=== PATIENT | female | born 2000 | race Two or more races ===

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

== ENCOUNTER 2021-08-03 04:06 | Emergency (ER) | payer MEDICAID ==
[~2021-08-03] VITALS: Ht 154.9 cm; Wt 61.2 kg
[2021-08-03 07:07] VITALS: BP 130/77
[2021-08-03] MEDS ORDERED: ACET-1158 PO ×2 (07:23→07:27)
[2021-08-03] MEDS ORDERED: PROM1SOL4 PO ×2 (07:23→07:27)
[2021-08-03] MEDS ORDERED: AZIT500T66 PO ×2 (07:23→07:27)
== END 2021-08-03 07:37 | disposition home or self-care (01) ==
LOC: ER 04:06
DX: U07.1 COVID-19 (principal); M79.10 Myalgia, unspecified site
CPT/HCPCS: 36415; 71045; 87426; 87804

== ENCOUNTER 2021-12-02 23:10 | Emergency (ER) | payer MEDICAID ==
[~2021-12-02] VITALS: Ht 154.9 cm; Wt 63.5 kg
[~2021-12-02 23:10] MED LIST: ACET-1158 PO; AZIT500T66 PO; PROM1SOL4 PO
[2021-12-02 23:51] LABS: Basophils # (auto) 0 10 ^3/uL (0-0.2); Basophils % (auto) 0.5 % (0.0-2.0); Eosinophils # (auto) 0.2 10 ^3/uL (0-0.8); Eosinophils % (auto) 2.3 % (0.0-7.0); Hematocrit 39.9 % (36.0-46.0); Lymphocytes # (auto) 1.4 10 ^3/uL (0.4-5.4); Lymphocytes % (auto) 18.5 % (10.0-50.0); Mean Corpuscular Hemoglobin 32.1 pg (28.0-32.0); Mean Corpuscular Volume 91.6 fL (80.0-100.0); Monocytes % (auto) 13.6 % (0.0-12.0); Neutrophils # (auto) 4.8 10 ^3/uL (1.6-8.6); Neutrophils % (auto) 65.1 % (37.0-80.0); Nucleated Red Blood Cells % 0.2 %; Red Blood Cells 4.35 10^6/uL (4.0-5.20); Red Cell Distribution Width 12.9 % (11.8-14.3); White Blood Cell 7.3 10^3/uL (4.4-10.8)
[2021-12-03 00:09] LABS: Albumin 3.6 g/dL (3.4-5.0); Calcium 8.6 mg/dL (8.5-10.1); Potassium 3.8 mmol/L (3.5-5.1)
[2021-12-03 00:12] LABS: Bilirubin, Total 0.4 mg/dL (0.2-1.0); Total Protein 7.9 g/dL (6.4-8.2)
[2021-12-03 01:09] LABS: Urine Bacteria FEW /hpf (None Seen); Urine Blood Negative /uL (Negative); Urine Mucus FEW (None Seen); Urine Specific Gravity 1.031 (1.001-1.035); Urine WBC 10 /hpf (0 - 5)
[2021-12-03 03:00] VITALS: BP 110/64
[2021-12-03] MEDS ORDERED: ONDA-144 PO (03:15)
== END 2021-12-03 03:34 | disposition home or self-care (01) ==
LOC: ER 23:18
DX: R11.2 Nausea with vomiting, unspecified (principal); Z32.02 Encounter for pregnancy test, result negative
CPT/HCPCS: 36415; 80053; 81001; 81025; 85025; 87070; 87880

== ENCOUNTER 2025-01-03 20:55 | Emergency (ER) | payer MEDICAID ==
[~2025-01-03] VITALS: Ht 154.9 cm; Wt 62.7 kg
[~2025-01-03 20:55] MED LIST changes: -ACET-1158 PO; +ONDA-144 PO; +[UNRECOGNIZED DRUG - CODE] PO
--- NOTE | 2025-01-03 21:43 | ED.PDOC ---
History of Present Illness HPI Comments 24-year-old female presents to the ED with a c/o abdominal pain and rectal bleeding. Patient states that she recently became sexually active again with last consensual intercourse being yesterday. Patient states that intercourse was painful and she is now experiencing rectal bleeding. Patient is also reporting some mild dizziness with ambulation. No other symptoms or modifying factors present at this time. Time Seen by MD: 21:40 Primary Care Provider: UNK Reviewed Notes: Medications, Allergies Allergies: Coded Allergies: NO KNOWN ALLERGIES (Unverified , 02/13/10) Home Meds Active Scripts Ondansetron (Zofran) 4 Mg Tab, 4 MG PO TID PRN for 10 Days, #15 TAB Prov:CONCETTA ORTIZ MD 12/03/21 Acetaminophen (Apap) 500 Mg Tab, 500 MG PO TID for 8 Days, #24 TAB Prov:TRACE HARPER 08/03/21 Promethazine-Dm (Promethazine Dm 6.25-15 mg/5Ml) 1 Oscar Oscar, 1 OSCAR PO TID for 7 Days, #150 ML Prov:TRACE HARPER 08/03/21 Azithromycin (Azithromycin) 500 Mg Tab, 500 MG PO DAILY for 5 Days, #5 TAB Prov:TRACE HARPER 08/03/21 Information Source: Patient Mode of Arrival: Ambulatory Severity: Moderate Timing: Hours Duration: Since onset Prehospital treatment: None Past Medical History PAST MEDICAL HISTORY: Denies Surgical History: Denies all surgeries 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 OFFICE ATTENDANT Hx Family History Family History: Reviewed,noncontributory to illness Social History Smoker: Non-Smoker Alcohol: Denies ETOH Use Drugs: Denies Drug Use Lives In: Home Constitutional: denies: chills, diaphoresis, fatigue, fever, malaise, sweats, weakness, others EENTM: denies: blurred vision, double vision, ear bleeding, ear discharge, ear drainage, ear pain, ear ringing, eye pain, eye redness, hearing loss, mouth pain, mouth swelling, nasal discharge, nose bleeding, nose congestion, nose pain, photophobia, tearing, throat pain, throat swelling, voice changes, others Respiratory: denies: cough, hemoptysis, orthopnea, SOB at rest, shortness of breath, SOB with excertion, stridor, wheezing, others Cardiovascular: denies: chest pain, dizzy spells, diaphoresis, Dyspnea on exertion, edema, irregular heart beat, left arm pain, lightheadedness, palpitations, PND, syncope, others Gastrointestinal: reports: abdominal pain, rectal bleeding; denies: abdomen distended, blood streaked bowels, constipated, diarrhea, dysphagia, difficulty swallowing, hematemesis, melena, nausea, poor appetite, poor fluid intake, rectal pain, vomiting, others Genitourinary: denies: abnormal vagina bleeding, burning, dyspareunia, dysuria, flank pain, frequency, hematuria, incontinence, pain, , vagina discharge, urgency, others Neurological: denies: dizziness, fainting, headache, left sided numbness, left sided weakness, numbness, paresthesia, pre-existing deficit, right sided numbness, right sided weakness, seizure, speech problems, tingling, tremors, weakness, others Musculoskeletal: denies: back pain, gout, joint pain, joint swelling, muscle pain, muscle stiffness, neck pain, others Integumetry: denies: bruises, change in color, change in hair/nails, dryness, laceration, lesions, lumps, rash, wounds, others Allergic/Immunocompromised: denies: Difficulty Healing, Frequent Infections, Hives, Itching, others Hematologic/Lymphatic: denies: anemia, blood clots, easy bleeding, easy bruising, swollen glands, others Endocrine: denies: excessive hunger, excessive sweating, excessive thirst, excessive urination, flushing, intolerance to cold, intolerance to heat, unexplained weight gain, unexplained weight loss, others Psychiatric: denies: anxiety, bipolar disorder, depression, hopeless, panic disorder, schizophrenia, sleepless, suicidal, others All Other Systems: Reviewed and Negative Physical Exam General Appearance: No Apparent Distress, Normal HEENT: Normal ENT Inspection, Pharynx Normal, TMs Normal Neck: Full Range of Motion, Non-Tender, Normal, Normal Inspection Respiratory: Chest Non-Tender, Lungs Clear, No Accessory Muscle Use, No Respir atory Distress, Normal Breath Sounds Cardiovascular: No Edema, No JVD, No Murmur, No Gallop, Normal Peripheral Pulses, Regular Rate/Rhythm Breast Exam: Deferred Gastrointestinal: No Organomegaly, Non Tender, No Pulsatile Mass, Normal Bowel Sounds, Soft Genitalia: Normal Pelvic: Deferred Rectal: Deferred Extremities: No calf tenderness, Normal capillary refill, Normal inspection, Normal range of motion, Non-tender, No pedal edema Musculoskeletal : Apperance: Normal Neurologic: Alert, reporting specialist II-XII nml as Tested, No Motor Deficits, Normal Affect, Normal Mood, No Sensory Deficits Cerebellar Function: Normal Reflexes: Normal Skin: Dry, Normal Color, Warm Lymphatic: No Adenopathy Was a procedure done? Was a procedure done?: No Differential Dx Considerations may include: Vaginal trauma, anal fissure, hemorrhoid, X-Ray, Labs, Meds, VS Vital Signs Date Time Temp Pulse Resp B/P (MAP) Pulse Ox O2 Delivery O2 Flow Rate FiO2 01/03/25 22:28 99.1 79 18 138/89 (105) 98 99.1 Lab Test 01/03/25 21:55 Range/Units Urine Color Light-yellow Yellow Urine Clarity Clear Clear Urine pH 6.0 5.0-9.0 Urine Specific [place] 1.011 1.001-1.035 Urine Protein Negative Negative Urine Ketones 2+ H Negative Urine Blood Negative Negative /uL Urine Nitrite Negative Negative Urine Bilirubin Negative Negative Urine Urobilinogen Normal Negative mg/dL Urine Leukocyte Esterase Negative Negative /uL Urine RBC 1 0 - 4 /hpf Urine Microscopic WBC < 1 0-5 /HPF Urine Squamous Epithelial Cells Few <5 /hpf Urine Bacteria None seen None Seen /hpf Urine Mucus Few None Seen Urine Glucose Normal Normal mg/dL X-Ray, Labs, Meds, VS Comment Imaging: X-rays and CT scans were reviewed and interpreted by this provider, imaging shows no fractures and no pathological disease. Pending radiology review. Laboratory: Labs reviewed and interpreted by this provider. No significant abnormalities noted. Patient has prior medical visits reviewed. Med reconciliation performed Vital signs reviewed Time of 1ST Reevaluation: 22:10 Reevaluation 1ST: Unchanged Patient Education/Counseling: Diagnosis, Treatment, Need For Follow Up (Follow up with PCP in 2-4 days. Return to the emergency department if symptoms worsen.) Family Education/Counseling: No Family Present Departure 1 Departure Time of Disposition: 23:07 Impression: Primary Impression: Vaginal laceration Qualified Codes: S31.41XA - Laceration without foreign body of vagina and vulva, initial encounter Disposition: HOME / SELF CARE / HOMELESS Condition: Fair Discharged With: Self Critical Care Note Critical Care Time?: No Stability Stability form required: No Heart Score Heart Score: Heart Score Response (Comments) Value History N/A 0 EKG N/A 0 Age N/A 0 Risk Factors N/A 0 Troponin N/A 0 Total 0 I personally scribed for WALLY ROBLES ([email or web address]) on 01/03/25 at 21:43. Electronically submitted by Antony Mooney ([email or web address]). WALLY ROBLES January 03, 2025 21:43
[2025-01-03 21:56] LABS: Urine Bacteria None Seen /hpf (None Seen)
[2025-01-03 22:59] LABS: Urine Blood Negative /uL (Negative); Urine Clarity Clear (Clear); Urine Color Light-Yellow (Yellow); Urine Mucus FEW (None Seen); Urine Protein, UAD Negative (Negative); Urine Specific Gravity 1.011 (1.001-1.035); Urine Squamous Epithelial Cell FEW /hpf (<5); Urine Urobilinogen Normal (Negative); Urine WBC < 1 /HPF (0-5)
[2025-01-04 00:18] VITALS: BP 124/73; TEMP 98.2
[2025-01-04 00:24] VITALS: PULSE 66; RESP 16; O2SAT 98
== END 2025-01-04 00:24 | disposition home or self-care (01) ==
LOC: ER 20:55
DX: S31.41XA Laceration without foreign body of vagina and vulva, initial encounter (principal); X58.XXXA Exposure to other specified factors, initial encounter; Y93.89 Activity, other specified; Y92.89 Other specified places as the place of occurrence of the external cause; Y99.8 Other external cause status
CPT/HCPCS: 81001

== ENCOUNTER 2025-05-25 21:04 | Emergency (ER) | payer MEDICAID, OTHER ==
[~2025-05-25] VITALS: Ht 154.9 cm; Wt 61.9 kg
[2025-05-25] MEDS ORDERED: NABU-72 PO (23:15)
[2025-05-25] MEDS ORDERED: TIZA-142 PO (23:15)
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
[2025-05-26 00:12] VITALS: BP 121/90; PULSE 68; RESP 20; TEMP 98.4; O2SAT 97
[2025-05-26] MEDS: KETOROLAC TROMETH 30 MG/ML 1ML VIAL ONE (00:20)
[2025-05-26] MEDS: KETOROLAC TROMETH 60MG/2ML VIAL IM ONE (00:20)
== END 2025-05-26 00:26 | disposition home or self-care (01) ==
LOC: ER 21:04
DX: S39.012A Strain of muscle, fascia and tendon of lower back, initial encounter (principal); S30.11XA Contusion of abdominal wall, initial encounter; G44.319 Acute post-traumatic headache, not intractable; Z79.899 Other long term (current) drug therapy; V89.2XXA Person injured in unspecified motor-vehicle accident, traffic, initial encounter; Y93.89 Activity, other specified; Y92.488 Other paved roadways as the place of occurrence of the external cause; Y99.8 Other external cause status
CPT/HCPCS: 96372; 99283; J1885